=== PATIENT | female | born 1965 | race American Indian/Alaskan Native ===

== ENCOUNTER 2018-05-23 10:18 | Observation (INO) | payer MEDICAID ==
[2018-05-19 09:48] LABS: Basophils # (Auto) 0.1 K/mm3 (0.0-0.1); Eosinophils # (Auto) 0.1 K/mm3 (0.0-0.4); Hematocrit 34.4 % (30.3-42.9); Hemoglobin 12.1 gm/dl (10.1-14.3); Lymphocytes # (Auto) 2.1 K/mm3 (1.2-5.4); Lymphocytes % (Auto) 29.7 % (13.4-35.0); Mean Corpuscular HGB Conc 35 % (30-34); Mean Corpuscular Hemoglobin 32 pg (28-32); Mean Corpuscular Volume 91 fl (79-97); Monocytes # (Auto) 0.6 K/mm3 (0.0-0.8); Monocytes % (Auto) 7.9 % (0.0-7.3); Platelet Count 358 K/mm3 (140-440); Red Blood Count 3.76 M/mm3 (3.65-5.03); Red Cell Distribution Width 13.5 % (13.2-15.2)
--- NOTE | 2018-05-19 10:09 | Anesthesia Consultation ---
Anesthesia Consult and Med Hx Date of service: 05/23/18 - Airway Anesthetic Teeth Evaluation: Good ROM Head & Neck: Adequate Mental/Hyoid Distance: Adequate Mallampati Class: Class III Intubation Access Assessment: Possibly Difficult - Pulmonary Exam CTA: Yes - Cardiac Exam Cardiac Exam: RRR - Pre-Operative Health Status ASA Pre-Surgery Classification: ASA2 Proposed Anesthetic Plan: General - Central Nervous System Hx Psychiatric Problems: No - Hematic Hx Anemia: Yes - Other Systems Hx Cancer: No Hx Obesity: Yes (morbid obesity)
[~2018-05-23 10:18] MED LIST: DEMEROL IV PRN; DILAUDID IV PRN; LACTATED RINGERS 1,000 ML IV SCH; TORADOL IV PRN; VERSED IV NR; ZOFRAN IV PRN
--- NOTE | 2018-05-23 12:54 | History and Physical Report ---
History of Present Illness Date of examination: 05/23/18 Chief complaint: Symptomatic uterine fibroids History of present illness: Pt is a 53yo BF LMP 05/05/18 presents for surgical evaluation and treatment of uterine fibroids. Pelvic u/s showed an enlarged uterus 11.5 x 7.5 x 7.1cm with several fibroids, the largest 6.1 x 7.4 x 6.4cm. Endometrial biopsy was benign. She is therefore scheduled for a Robotic Assisted Total Hysterectomy with Bilateral SalpingoOophorectomy. 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 Family/Genetic History: none Social history: no significant social history, single Medications and Allergies Allergies Allergy/AdvReac Type Severity Reaction Status Date / Time lisinopril Allergy Angioedema Verified 05/18/18 09:02 Penicillins Allergy Rash Verified 05/18/18 09:02 Home Medications Medication Instructions Recorded Confirmed Last Taken Type Acetaminophen [Tylenol] 325 mg PO PRN PRN 05/18/18 05/23/18 05/22/18 History Ferrous Sulfate [Feosol 325 MG tab] 325 mg PO HS 05/18/18 05/23/18 05/22/18 History Ranitidine HCl [Zantac 150 MG TAB] 150 mg PO PRN PRN 05/18/18 05/23/18 05/22/18 History Active Meds: Active Medications Hydromorphone HCl (Dilaudid) 0.5 mg IV Q10MIN PRN PRN Reason: Pain , Severe (7-10) Stop: 05/23/18 18:00 Lactated Ringer's (Lactated Ringers) 1,000 mls @ 100 mls/hr IV DIRECT KACEY Clindamycin HCl (Cleocin 600 Mg/50 Ml) 600 mg in 50 mls @ 100 mls/hr IV PREOP KACEY; Protocol Gentamicin Sulfate 240 mg/ (Sodium Chloride) 106 mls @ 200 mls/hr IV PREOP KACEY ; Protocol Ketorolac Tromethamine (Toradol) 30 mg IV ONCE PRN PRN Reason: Pain, Moderate (4-6) Stop: 05/23/18 16:00 Meperidine HCl (Demerol) 25 mg IV ONCE PRN PRN Reason: Shivering Stop: 05/23/18 16:00 Midazolam HCl (Versed) 2 mg IV PREOP NR Stop: 05/23/18 23:59 Ondansetron HCl (Zofran) 4 mg IV ONCE PRN PRN Reason: Nausea And Vomiting Stop: 05/23/18 16:00 Review of Systems All systems: negative - Vital Signs Vital signs: Vital Signs Temp Pulse Resp BP 98.1 F 60 20 138/86 05/19/18 09:20 05/19/18 09:20 05/19/18 09:20 05/19/18 09:20 Temp Pulse Resp BP Pulse Ox 98.4 F 61 18 138/89 98 05/23/18 12:13 05/23/18 12:13 05/23/18 12:13 05/23/18 12:13 05/23/18 12:13 - Physical Exam Breasts: Positive: deferred Cardiovascular: Regular rate Lungs: Positive: Clear to auscultation Abdomen: Positive: normal appearance, soft Genitourinary (Female): Positive: normal external genitalia Vagina: Positive: normal moisture Uterus: Positive: enlarged Extremities: Positive: normal Results Result Diagrams: 05/19/18 09:35 All other labs normal. Ultrasound: report reviewed Assessment and Plan - Patient Problems (1) Uterine fibroid Onset Date: 05/23/18 Current Visit: Yes Status: Chronic Qualifiers: Uterine leiomyoma location: intramural, submucous, and subserous Qualified Code(s): D25.1 - Intramural leiomyoma of uterus; D25.0 - Submucous leiomyoma of uterus; D25.2 - Subserosal leiomyoma of uterus Plan to address problem: A: Symptomatic uterine fibroids Menorrhagia - most likely due to uterine fibroids Anemia - most likely due to menorrhagia P: Admit for a Robotic Assisted Total Hysterectomy with Bilateral SalpingoOophorectomy (2) Menorrhagia with irregular cycle Onset Date: 05/23/18 Current Visit: Yes Status: Chronic (3) Anemia Onset Date: 05/23/18 Current Visit: Yes Status: Chronic Qualifiers: Anemia type: iron deficiency
[2018-05-23] MEDS ORDERED: GARAMYCIN 240 MG in NACL 0.9% 100 ML IV SCH (13:00)
[2018-05-23] MEDS ORDERED: CLEOCIN 600 MG/50 mL 600 MG/50 ML BAG IV SCH (13:00)
[2018-05-23] MEDS ORDERED: DECADRON ONE (14:00)
[2018-05-23] MEDS ORDERED: XYLOCAINE MPF 2% ONE (14:00)
[2018-05-23] MEDS ORDERED: DIPRIVAN 10 MG/ML IV ONE (14:00)
[2018-05-23] MEDS ORDERED: ZEMURON IV ONE (14:00)
[2018-05-23] MEDS ORDERED: ZOFRAN ONE (14:00)
[2018-05-23] MEDS ORDERED: DILAUDID ONE (14:01)
--- NOTE | 2018-05-23 14:18 | Anesthesia Day of Surgery ---
Anesthesia Day of Surgery - Day of Surgery Patient Examined: Yes Patient H&P Reviewed: Yes Patient is NPO: Yes
[2018-05-23] MEDS ORDERED: MARCAINE 0.5% INFILTRATI ONE ×2 (14:52→16:25)
[2018-05-23] MEDS ORDERED: NEOSPORIN GU IR ONE ×2 (14:52→15:19)
[2018-05-23] MEDS ORDERED: SUBLIMAZE ONE ×2 (15:08→15:24)
[2018-05-23] MEDS ORDERED: NACL 0.9% IR ONE ×2 (15:19→15:21)
[2018-05-23] MEDS ORDERED: APRESOLINE ONE ×2 (16:09→17:52)
[2018-05-23] MEDS ORDERED: ROBINUL ONE (16:18)
[2018-05-23] MEDS ORDERED: BLOXIVERZ ONE (16:18)
[2018-05-23] MEDS ORDERED: NORCO 5/325 PO PRN (16:22)
[2018-05-23] MEDS ORDERED: BENADRYL IV PRN (16:22)
[2018-05-23] MEDS ORDERED: TYLENOL PO PRN (16:22)
[2018-05-23] MEDS ORDERED: PERCOCET 5/325 PO PRN (16:22)
[2018-05-23] MEDS ORDERED: NARCAN 0.4 MG/1 ML IV PRN ×2 (16:22)
[2018-05-23] MEDS ORDERED: MILK OF MAGNESIA PO PRN (16:22)
[2018-05-23] MEDS ORDERED: ZOFRAN IV PRN (16:22)
--- NOTE | 2018-05-23 16:48 | Operative Report ---
Operative Report Operative Report: Date of procedure: 05/23/2018 Pre-operative diagnosis: 1. Symptomatic uterine fibroids 2. Menorrhagia 3. Anemia Post-operative diagnosis: Same Procedure name(s): Robotic-assisted total hysterectomy with bilateral salpingo- oophorectomy Surgeon: Dez Good MD District Supervisor: Mitzi Clark CSA Anesthesia: Gen. endotracheal intubation by Dr. Lawrence EBL: 100 mL's Findings: A 10-12 week size multi-myomatous uterus with bilaterally cystic ovaries. Fallopian tubes showed evidence of previous tubal ligation bilaterally. Procedure: After the patient's first correctly identified she was prepped and draped in the usual sterile fashion and placed in the dorsolithotomy position. The bladder was first catheterized using Dean catheter and the speculum was placed in the vagina and the anterior lip of the cervix was grasped using a single-tooth tenaculum, and the medium Vesicare cup was placed. The tenaculum and speculum was then removed from the vagina and attention was then turned to the abdomen. The skin knife was used to make a small incision approximately 5 cm above the umbilicus through which a 12 mm trocar was placed under direct visualization. After adequate amount of abdominal insufflation visualization of the pelvic organs found the uterus to be enlarged and the tubes showed evidence of previous tubal ligation bilaterally, and both fallopian tubes or cystic. A right and left paramedian incision was made through which the 8 mm trochars were placed under direct visualization and a 5 mm trocar was placed in the right lower quadrant. The patient was then placed in steep Trendelenburg positioning and the robot was docked on the patient's left side. After all the robotic ports were connected and adequate functioning of the robotic arms were tested the surgeon then proceeded to the console to begin the hysterectomy. First the left round ligament was grasped, cauterized and cut, the left infundibulopelvic ligament was grasped, cauterized and cut, and the left fallopian tube also grasped, cauterized and cut along the mesosalpinx, thus freeing the left ovary and left ovarian cyst from the left pelvic sidewall. The same procedure was performed on the right. The right round ligament was grasped, cauterized and cut, the right infundibulopelvic ligament was grasped, cauterized and cut, and the right fallopian tube also grasped, cauterized and cut along the mesosalpinx, thus freeing the right ovary and right ovarian cyst from the right pelvic sidewall. The bladder flap was taken down anteriorly and the uterine vessels were grasped, cauterized and cut bilaterally. The cardinal ligaments were sequentially grasped, cauterized and cut down to the level of the uterosacral ligaments. At this time the posterior colpotomy was performed over the Vcare cup, and the cervix was circumscribed beginning posteriorly and meeting anteriorly until the cervix was freed. The cervix, uterus, fallopian tubes and ovaries were then removed through the vagina and sent to pathology. The vaginal cuff was then closed using 2-0 Vloc suture in a running fashion. Irrigation was then performed and after good hemostasis was achieved the procedure was considered complete. The Tisseel sealant was then sprayed across the vaginal cuff site, and after excellent hemostasis was assured Interceed was placed across the vaginal cuff site. All instruments were then removed from the abdominal cavity. And each incision was closed using 0 Vicryl suture in a [id number] configuration on the fascia followed by 4-0 Monocryl suture in a sub-cuticular fashion on the skin. Each incision was also infiltrated using 0.5% Marcaine solution. The vaginal pack was removed. The patient tolerated the procedure well and was transported to the recovery room in stable condition.
[2018-05-23] MEDS ORDERED: NACL 0.9% 1000 ML 1,000 ML IV SCH (17:00)
[2018-05-23] MEDS ORDERED: CLIMARA TD SCH (17:00)
[2018-05-23] MEDS ORDERED: D5LR 1,000 ML IV SCH (17:00)
[2018-05-23] MEDS ORDERED: MORPHINE PCA 30MG/30ML IV SCH (17:00)
[2018-05-23] MEDS: TORADOL IV SCH ×2 (17:16→23:53)
[2018-05-23] MEDS ORDERED: NORMODYNE IV PRN (17:34)
[2018-05-23] MEDS ORDERED: APRESOLINE IV PRN (17:51)
[2018-05-23] MEDS: COLACE PO SCH (22:01)
[2018-05-23] MEDS: GARAMYCIN/NS 80 MG/100 ML 100 ML IV SCH (23:52)
[2018-05-24] MEDS: CLEOCIN 600 MG/50 mL 600 MG/50 ML BAG IV SCH ×2 (01:01→09:19)
[2018-05-24] MEDS: TORADOL IV SCH (05:20)
[2018-05-24 05:48] LABS: Hematocrit 36.1 % (30.3-42.9); Hemoglobin 12.1 gm/dl (10.1-14.3)
[2018-05-24] MEDS: GARAMYCIN/NS 80 MG/100 ML 100 ML IV SCH (08:19)
[2018-05-24] MEDS ORDERED: GARAMYCIN/NS 80 MG/100 ML 100 ML IV SCH (08:30)
--- NOTE | 2018-05-24 09:21 | Progress Note ---
Assessment and Plan - Patient Problems (1) Uterine fibroid Onset Date: 05/23/18 Current Visit: Yes Status: Resolved Qualifiers: Uterine leiomyoma location: intramural, submucous, and subserous Qualified Code(s): D25.1 - Intramural leiomyoma of uterus; D25.0 - Submucous leiomyoma of uterus; D25.2 - Subserosal leiomyoma of uterus (2) Menorrhagia with irregular cycle Onset Date: 05/23/18 Current Visit: Yes Status: Resolved (3) Anemia Onset Date: 05/23/18 Current Visit: Yes Status: Chronic Qualifiers: Anemia type: iron deficiency (4) Status post robot-assisted surgical procedure Onset Date: 05/24/18 Current Visit: Yes Status: Resolved Plan to address problem: A: S/P RATH with BSO - POD #1 Doing well P: May go home today. Subjective - Subjective Date of service: 05/24/18 Principal diagnosis: s/p RATH/BSO - POD #1 Interval history: Pt is feeling well s/p a Robotic Assisted Total Hysterectomy with Bilateral SalpingoOophorectomy. She is tolerating a soft diet without nausea or vomiting , ambulating and voiding without difficulty. Patient reports: appetite normal, voiding normally, pain well controlled, ambulating normally, no dizzy ambulation, no flatus, no nauseated Objective - Vital Signs Latest vital signs: Vital Signs Temp Pulse Resp BP BP Pulse Ox 05/24/18 08:21 98.2 F 76 20 123/78 97 05/24/18 06:00 20 05/24/18 05:20 18 05/24/18 04:05 98.4 F 78 18 138/63 98 05/24/18 04:00 18 05/24/18 02:00 20 05/24/18 00:00 98.2 F 75 18 139/71 100 05/23/18 23:53 20 05/23/18 21:44 20 05/23/18 20:00 98.2 F 68 18 134/71 98 05/23/18 18:30 97.8 F 73 16 124/69 99 05/23/18 18:00 68 16 128/79 100 05/23/18 17:30 77 17 191/111 99 05/23/18 17:00 80 14 191/111 99 05/23/18 16:55 79 17 187/115 98 05/23/18 16:50 77 16 189/110 99 05/23/18 16:45 76 17 188/112 98 05/23/18 16:38 97.0 F L 78 13 188/112 100 05/23/18 12:13 98.4 F 61 18 138/89 98 05/23/18 12:05 98.4 F 61 18 138/89 98 Intake and Output 05/23/18 05/24/18 05/24/18 22:59 06:59 14:59 Intake Total 200 580 Output Total 250 1100 Balance -50 -520 Intake: IV 200 100 Garamycin/Ns 80 mg/100 ml 100 100 ml @ 200 mls/hr IV Q8H [facility] Rx#:[id number] Oral 480 Output: Urine 250 1100 Indwelling Catheter 1100 Other: Total, Intake Amount 240 Total, Output Amount 400 Voiding Method Indwelling Catheter - Exam Breasts: Present: deferred Cardiovascular: Present: Regular rate Lungs: Present: Clear to auscultation Abdomen: Present: normal appearance, soft Extremities: Present: normal Incision: Present: normal, dry, intact - Labs Labs: Laboratory Tests 05/19/18 05/19/18 05/23/18 09:35 09:35 11:54 WBC 7.2 RBC 3.76 Hgb 12.1 Hct 34.4 MCV 91 MCH 32 MCHC 35 H RDW 13.5 Plt Count 358 Lymph % (Auto) 29.7 [place] % (Auto) 7.9 H Eos % (Auto) 2.0 Baso % (Auto) 1.0 Lymph # 2.1 [place] # 0.6 Eos # 0.1 Baso # 0.1 Seg Neutrophils % 59.4 Seg Neutrophils # 4.2 HCG, Qual Negative Blood Type A NEGATIVE Antibody Screen Negative 05/24/18 05:08 WBC RBC Hgb 12.1 Hct 36.1 MCV MCH MCHC RDW Plt Count Lymph % (Auto) [place] % (Auto) Eos % (Auto) Baso % (Auto) Lymph # [place] # Eos # Baso # Seg Neutrophils % Seg Neutrophils # HCG, Qual Blood Type Antibody Screen
--- NOTE | 2018-05-24 09:43 | Discharge Summary ---
Providers - Providers Date of Admission: 05/23/18 16:22 Date of discharge: 05/24/18 Attending physician: JOSE SANFORD Primary care physician: PRACHI MORIN Hospitalization Reason for admission: other (Symptomatic uterine fibroids; Menorrhagia) Procedure: other (Robotic Assisted Total Hysterectomy with BSO) Episiotomy: none Laceration: none Incision: normal, dry, intact Other procedures: none complications: none Discharge diagnosis: other (s/p RATH with BSO) Hospital course: Pt is a 53yo BF LMP 05/05/18 who presented for surgical evaluation and treatment of uterine fibroids. Pelvic u/s showed an enlarged uterus 11.5 x 7.5 x 7.1cm with several fibroids, the largest 6.1 x 7.4 x 6.4cm. Endometrial biopsy was benign. She underwent an uncomplicated Robotic Assisted Total Hysterectomy with Bilateral SalpingoOophorectomy, and by POD #1 she was tolerating a reg diet without nausea or vomiting, ambulating and voiding without difficulty. She was therefore discharged to home on POD #1 in stable condition. Condition at discharge: Good Disposition: DC-01 TO HOME OR SELFCARE - Discharge Diagnoses (1) Uterine fibroid Status: Resolved Qualifiers: Uterine leiomyoma location: intramural, submucous, and subserous Qualified Code(s): D25.1 - Intramural leiomyoma of uterus; D25.0 - Submucous leiomyoma of uterus; D25.2 - Subserosal leiomyoma of uterus (2) Menorrhagia with irregular cycle Status: Resolved (3) Anemia Status: Chronic Qualifiers: Anemia type: iron deficiency (4) Status post robot-assisted surgical procedure Status: Resolved Plan - Discharge Medications Prescriptions: HYDROcodone/APAP 5-325 [[place] 5/325] 1 each PO Q6HR PRN #30 tablet PRN Reason: Pain - Provider Discharge Summary Activity: routine, no sex for 6 weeks, no heavy lifting 4 weeks, no strenuous exercise Diet: routine Instructions: routine Additional instructions: [] Smoking cessation referral if applicable(refer to patient education folder for contact #) [] Refer to [facility] Booklet Call your doctor immediately for: * Fever > 100.5 * Heavy vaginal bleeding ( >1 pad per hour) * Severe persistent headache * Shortness of breath * Reddened, hot, painful area to leg or breast * Drainage or odor from incision. * Keep incision clean and dry at all times and follow doctor's instructions regarding bathing/showering - Follow up plan Follow up: PRACHI MORIN MD [Primary Care Provider] - 7 Days JOSE SANFORD MD [Staff Physician] - 14 Days
[2018-05-24] MEDS: COLACE PO SCH (10:34)
[2018-05-24 16:21] VITALS: BP 143/77
== END 2018-05-24 15:30 | disposition home or self-care (01) ==
LOC: OR 10:18 → OB 16:22
PROVIDERS: ADMIT Obstetrics & Gynecology; ATTEND Obstetrics & Gynecology
DX: D25.0 Submucous leiomyoma of uterus (principal); D25.1 Intramural leiomyoma of uterus; D25.2 Subserosal leiomyoma of uterus; N92.1 Excessive and frequent menstruation with irregular cycle; D64.9 Anemia, unspecified; E66.01 Morbid (severe) obesity due to excess calories; Z68.44 Body mass index [BMI] 60.0-69.9, adult
CPT/HCPCS: 36415; 58573; 84703; 85014; 85018; 85025; 86850; 86900; 86901; 88307; 96365; 96366; 96367; 96375; 96376; A4217; C1765; C9250; G0378; J0360; J1100; J1170; J1580; J1885; J2250; J2270; J2405; J2704; J2710; J3010; J7120; J7121; S2900; J7030